=== PATIENT | female | born 1980 | race Caucasian/White ===

== ENCOUNTER 2019-04-24 20:30 | Emergency (ER) | payer OTHER ==
[~2019-04-24] VITALS: Ht 160 cm; Wt 78.5 kg
[~2019-04-24 20:30] MED LIST: AMOXICILLIN500 MG PO; ATIVAN1 MG PO; CELEXA20 MG PO; CIPRO500 MG PO; CIPROFLOXACIN500 MG PO; CITALOPRAM HBR20 MG PO; CLEOCIN HCL300 MG PO; CRANBERRY200 MG PO; DRISDOL50000 UNIT PO; EFFEXOR XR37.5 MG PO; FISH OIL 1,0001 EAC2 NG; GEODON60 MG PO; LEXAPRO20 MG PO; MACROBID 100 M100 MG PO; METOPROLOL SUCC25 MG PO; OMEPRAZOLE20 MG PO; POTASSIUM CHLO10 ME1 PO; PRILOSEC20 MG PO; SEROQUEL XR150 MG PO; VENLAFAXINE HCL75 M1 PO; VENTOLIN HFA18 GM INH; VITAMIN D5000 UNIT PO; ZOFRAN ODT4 MG PO; ZOFRAN4 MG PO
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
[2019-04-24] MEDS ORDERED: VISTARIL50 MG PO (20:50)
[2019-04-24] MEDS ORDERED: CETIRIZINE HCL10 MG PO (20:52)
[2019-04-24] MEDS ORDERED: PREDNISONE20 MG PO (22:17)
--- NOTE | 2019-04-25 15:40 | EKG ---
[facility] [address] [facility] [place], [place] [address] Signed Normal sinus rhythm Voltage criteria for left ventricular hypertrophy Nonspecific T wave abnormality Prolonged QT Abnormal ECG No previous ECGs available Confirmed by MONO JIN DO ([id number]) on 04/25/2019 3:39:50 PM Electronically Signed By: MONO JIN DO 04/25/19 1540 PATIENT NAME: LAURYN OWENS Electrocardiogram DATE OF : 82 PHYSICIAN: MONO JIN DO REPORT #: [id number] REPORT IS CONFIDENTIAL AND NOT TO BE RELEASED WITHOUT AUTHORIZATION
== END 2019-04-24 22:38 | disposition home or self-care (01) ==
LOC: ED 20:30
DX: J45.901 Unspecified asthma with (acute) exacerbation (principal); Z87.891 Personal history of nicotine dependence; Z90.49 Acquired absence of other specified parts of digestive tract; Z90.710 Acquired absence of both cervix and uterus; Z88.1 Allergy status to other antibiotic agents; Z88.2 Allergy status to sulfonamides; Z88.5 Allergy status to narcotic agent; Z88.8 Allergy status to other drugs, medicaments and biological substances; Z79.899 Other long term (current) drug therapy
CPT/HCPCS: 71045; 93005; 93010; 99285-25; J7512

== ENCOUNTER 2020-04-26 06:30 | Day surgery (SDC) | payer OTHER ==
[~2020-04-26] VITALS: Ht 160 cm; Wt 86.2 kg
[~2020-04-26 06:30] MED LIST changes: +CETIRIZINE HCL10 MG PO; +PREDNISONE20 MG PO; +VISTARIL50 MG PO
--- NOTE | 2020-04-26 06:57 | NUR ---
PATIENT HAVING ANXIETY ABOUT IV. HAD TO GET A AC BECAUSE PATIENNT LOOKED LIKE SHE MIGHT FAINT.
--- NOTE | 2020-04-26 08:08 | NUR ---
FROM THE MOMENT I ENTERED PT'S RM, I COULD TELL SHE HAD SOME ANXIETY ABOUT TODAY. A SLIGHT HESITATION IN HER VOICE WHEN SHE WOULD RESPOND, AND LOOKING OVER AT HER FRIEND BEFORE GIVING AN ANSWER. OUTLINED TODAY, PT REQUESTED PRAYER. WILL FOLLOW NEEDED
--- NOTE | 2020-04-26 08:14 | NUR ---
04/26/20 0814 Monse Snowden 0808 PT ARRIVED TO PACU ON 4L VIA NC, VSS. RESP EVEN AND UNLABORED. 0813 PT WOKE TO TACTILE STIMULI AND PT REACHING FOR HER FACE, O2 REMOVED. PT FALLS BACK TO SLEEP.
--- NOTE | 2020-04-27 07:31 | OR ---
[facility] [address] [place], [place] [address] Signed DATE OF OPERATION: 04/26/2020 SURGEON: Constantine Bill MD PREOPERATIVE DIAGNOSES: 1. Guaiac-positive stool. 2. Melena. 3. Change in bowel habits with constipation, change in diarrhea. 4. History of irritable bowel syndrome. 5. Right lower quadrant abdominal pain. 6. Gastroesophageal reflux disease. 7. Hiatal hernia. 8. Maternal great grandmother with colon cancer, age 85. 9. Maternal grandmother with colon polyps, age 86. POSTOPERATIVE DIAGNOSES: 1. Unremarkable upper endoscopy. 2. Unremarkable colonoscopy. PROCEDURES: 1. EGD with CLOtest and biopsies of the duodenum, pyloric bulb, antrum, and distal esophagus. 2. Colonoscopy with random cold biopsies. ESTIMATED BLOOD LOSS: None. INDICATIONS: Lauryn is a 40-year-old female, who has multiple significant past medical history as listed in history and physical. She also has significant multiple upper and lower GI complaints over multiple years. She has been to multiple previous evaluations. Most recently, she had upper and lower endoscopy and stool studies done with Dr. Dino Chaudhry in [place], [place]. Her stool studies were all negative. CT scan of abdomen and pelvis in 2018 was also negative. Upper and lower endoscopy in 2018 including biopsies and the H pylori were all negative. She apparently had a previous negative biopsy in October 2017 and a previous negative upper endoscopy in [address] Chaudhry has since retired. She was asked to see me for concerns of ongoing upper and lower GI complaints. She was asked to consider repeat upper and lower endoscopy. I had met with Lauryn and her mother in the office. Lauryn is disabled and her mother is legally blind. Her mother, however, is her caregiver. After a long discussion with Electronically Signed By: CONSTANTINE BILL MD 04/27/20 0731 PATIENT NAME: LAURYN OWENS OPERATIVE REPORT DATE OF : 82 REPORT #: [id number] PHYSICIAN: CONSTANTINE BILL MD PCP: STEFFANIE CHAMBERS REPORT IS CONFIDENTIAL AND NOT TO BE RELEASED WITHOUT AUTHORIZATION [facility] [address] [place], [place] [address] Signed Lauryn, we made efforts to track down all her previous records. We went ahead and scheduled her for both upper and lower endoscopy. She understands upper and lower endoscopy quite well. I did give her pamphlets in that regard. She knows there is risk including, but not limited to gas bloating, crampy abdominal pain, bleeding, perforation requiring surgery, and missed diagnosis. Also because of her multiple advanced medical issues, we asked an anesthesia provider to help us with increased monitoring sedation with propofol. Lauryn and her mother understand that repeat upper and lower endoscopy will likely have a low yield. In the meantime, we did receive the records from Dr. Dino Chaudhry's office. Again, he has since retired. His evaluation was negative. We yet to find any evidence of an upper GI small-bowel follow-through or capsule endoscopy. In the end, it appears she most likely has irritable bowel syndrome. Lauryn and her mom had expressed understanding, wished to proceed. PROCEDURE NOTE: Lauryn was taken into our endoscopy suite and placed in the supine semi-recumbent position. The posterior oropharynx was anesthetized with lidocaine spray. A bite block was utilized for the case. Lauryn was placed under propofol sedation per nurse beading machine operator. The adult gastroscope was introduced and advanced out into the third portion of the duodenum without difficulty. She had healthy clear green bile in the duodenum. The duodenum and pyloric channel were unremarkable. We took a biopsy of the duodenum, pyloric channel because of the history of diarrhea. There was no ulceration in the pyloric bulb or the stomach. Stomach also completed unremarkable. We went ahead and took a biopsy of the antrum for pathologic review as well as CLOtest. Upon retroflexion of scope, we see no evidence of a hiatal hernia. The scope was withdrawn up through the area of the GE junction, which was compliant without stricture. There was no evidence of any gastric or esophageal varices. The Z-line remains intact. There was no evidence for any Robert's mucosa and no distal esophagitis. We went ahead and took a biopsy just above the Z-line for pathologic review. The middle and upper esophagus were unremarkable. After this, the gas was suctioned out, the gastroscope removed. Lauryn tolerated the upper endoscopy quite well. Lauryn was then rotated into the left lateral decubitus position. She was maintained on IV sedation with propofol per our nurse beading machine operator. A digital rectal exam was performed and this was unremarkable. The adult colonoscope was then introduced and advanced under direct visualization of camera up to the cecum without difficulty. Her prep was quite excellent. We could easily see the appendiceal orifice and the ileocecal valve. Again, she has healthy green bile in the cecum. The scope was slowly withdrawn. We took several but random biopsies throughout the colon for pathologic review due to the history of diarrhea. No evidence of any pathology throughout the entire colon or rectum. Upon retroflexion of scope, there was no pathology above the anal canal. After this, the gas was suctioned out. The colonoscope removed. Lauryn tolerated her lower endoscopy quite well. Electronically Signed By: CONSTANTINE BILL MD 04/27/20 0731 PATIENT NAME: LAURYN OWENS OPERATIVE REPORT DATE OF : 82 REPORT #: [id number] PHYSICIAN: CONSTANTINE BILL MD PCP: STEFFANIE CHAMBERS REPORT IS CONFIDENTIAL AND NOT TO BE RELEASED WITHOUT AUTHORIZATION [facility] [address] [place], [place] [address] Signed RECOMMENDATIONS: I will see Lauryn back in my office in 7 to 14 days to review her results. She may or may not benefit from an upper GI small-bowel follow-through and/or a capsule endoscopy. In the end, it may all be irritable bowel syndrome. That would be handled from a medical standpoint. Constantine Bill MD [facility] /[id number] cc: MD Constantine Bravo MD Tiffany Nickerson, PA Christopher Ravage, MD Copies: CONSTANTINE BILL MD, CHRISTOPHER MD ~ Electronically Signed By: CONSTANTINE BILL MD 04/27/20 0731 PATIENT NAME: LAURYN OWENS OPERATIVE REPORT DATE OF : 82 REPORT #: [id number] PHYSICIAN: CONSTANTINE BILL MD PCP: STEFFANIE CHAMBERS REPORT IS CONFIDENTIAL AND NOT TO BE RELEASED WITHOUT AUTHORIZATION
--- NOTE | 2020-04-28 11:34 | PATH ---
[facility] [address] [place], [place] [address] Signed SPECIMEN(S): A DUODENUM SPECIMEN(S): B DUODENUM BULB SPECIMEN(S): C ANTRUM/PYLORUS SPECIMEN(S): D LOWER ESOPHAGUS SPECIMEN(S): E MIDDLE ESOPHAGUS SPECIMEN(S): F COLON SPECIMEN SOURCE: A. DUODENUM B. DUODENUM BULB C. ANTRUM/PYLORUS D. LOWER ESOPHAGUS E. MIDDLE ESOPHAGUS F. COLON CLINICAL HISTORY: Black stool, history of diarrhea. MICROSCOPIC DESCRIPTION: Histologic sections of all submitted blocks are examined by light microscopy. These findings, together with the gross examination, support the pathologic diagnosis. FINAL PATHOLOGIC DIAGNOSIS: A. Duodenum, biopsy: - Duodenal mucosa with no histopathologic abnormality. - Negative for increased intraepithelial lymphocytes. - Negative for dysplasia or malignancy. B. Duodenum, bulb, biopsy: - Duodenal mucosa with changes consistent with peptic duodenitis. - Negative for Helicobacter organisms on HE stain. - Negative for dysplasia or malignancy. C. Stomach, antrum/pylorus, biopsy: - Antral mucosa with mild chronic, inactive gastritis. - Negative for Helicobacter organisms on HE stain. - Negative for dysplasia or malignancy. D. Esophagus, lower, biopsy: - Squamous mucosa with chronic inflammation and reactive epithelial changes, consistent with reflux esophagitis. - Negative for intestinal metaplasia, dysplasia, or malignancy. E. Esophagus, middle, biopsy: - Squamous mucosa with no histopathologic abnormality. PATIENT NAME: LAURYN OWENS [facility] DATE OF : 82 REPORT #: [id number] PHYSICIAN: MURIEL PATHOLOGY PCP: STEFFANIE CHAMBERS REPORT IS CONFIDENTIAL AND NOT TO BE RELEASED WITHOUT AUTHORIZATION [facility] [address] [place], [place] [address] Signed - Negative for intestinal metaplasia, dysplasia, or malignancy. F. Colon, biopsy: - Colonic mucosa with mild mucosal capillary congestion and hemorrhage, see comment. - Negative for active, chronic, or microscopic colitis. - Negative for dysplasia or malignancy. COMMENT: Regarding specimen F: Sections demonstrate fragments of benign colonic mucosa with mild mucosal capillary congestion and hemorrhage within the lamina propria. No signs of ischemia including ulcerations, crypt injury, crypt dropout, or stromal hyalinization are seen. The findings are favored to be secondary to procedure artifact. Correlation with colonoscopic findings is recommended. NAL:cml:C2NR GROSS DESCRIPTION: Six specimens are received in six containers, labeled "Lauryn Owens." A. The specimen, labeled "Lauyrn Owens, #1," and designated on the requisition "duodenum biopsy," is received in formalin and consists of one dee soft tissue fragment that measures 0.4 cm in greatest dimension. The specimen is entirely submitted in cassette (A1). B. The specimen, labeled "Lauryn Owens, #2," and designated on the requisition "duodenum bulb," is received in formalin and consists of one dee soft tissue fragment that measures 0.4 cm in greatest dimension. The specimen is entirely submitted in cassette (B1). C. The specimen, labeled "Lauryn Owens, #3," and designated on the requisition "antrum/pylorus," is received in formalin and consists of one dee soft tissue fragment that measures 0.4 cm in greatest dimension. The specimen is entirely submitted in cassette (C1). D. The specimen, labeled "Lauryn Owens, #4," and designated on the requisition "lower esophagus," is received in formalin and consists of one white-dee soft tissue fragment that measures 0.5 cm in greatest dimension. The specimen is entirely submitted in cassette (D1). E. The specimen, labeled "Lauryn Owens, #5," and designated on the requisition "middle esophagus," is received in formalin and consists of one white-dee soft tissue fragment that measures 0.4 cm in greatest dimension. The specimen is entirely submitted in cassette (E1). F. The specimen, labeled "Lauryn Owens, #6," and designated on the requisition "colon," is received in formalin and consists of three dee soft PATIENT NAME: LAURYN OWENS PATHOLOGY DATE OF : 82 REPORT #: [id number] PHYSICIAN: MURIEL FARLEY PCP: STEFFANIE CHAMBERS REPORT IS CONFIDENTIAL AND NOT TO BE RELEASED WITHOUT AUTHORIZATION [address] [address] Signed tissue fragments that measure 0.3-0.4 cm in greatest dimension. The specimen is entirely submitted in cassette (F1). FB (under the direct supervision of a pathologist) The Gross Description was prepared using a voice recognition system. The report was reviewed for accuracy; however, sound-alike word errors, addition and/or deletions may occur. If there is any question about this report, please contact Client Services. PERFORMING LABORATORY: The technical component was performed by [facility], [address] [place] [id number] (Statistician Mathematical: Yue Kenny MD; CLIA# [id number]). [facility] [place] [address] (CLIA# [id number]). Diagnostician: Tita Shoemaker MD Pathologist Electronically Signed 04/28/2020 Copies: ~ PATIENT NAME: LAURYN OWENS PATHOLOGY DATE OF : 82 REPORT #: [id number] PHYSICIAN: MURIEL FARLEY PCP: STEFFANIE CHAMBERS REPORT IS CONFIDENTIAL AND NOT TO BE RELEASED WITHOUT AUTHORIZATION
== END 2020-04-26 09:00 | disposition home or self-care (01) ==
LOC: OPS 06:30 → DS 06:30 → OPS 06:45 → DS 06:45 → OPS 09:00
PROVIDERS: Colon & Rectal Surgery
PROC: 0DB28ZX Excision of Middle Esophagus, Via Natural or Artificial Opening Endoscopic, Diagnostic (ICD-10-PCS; 2020-04-26)
PROC: 0DB38ZX Excision of Lower Esophagus, Via Natural or Artificial Opening Endoscopic, Diagnostic (ICD-10-PCS; 2020-04-26)
PROC: 0DBE8ZX Excision of Large Intestine, Via Natural or Artificial Opening Endoscopic, Diagnostic (ICD-10-PCS; 2020-04-26)
PROC: 0DB98ZX Excision of Duodenum, Via Natural or Artificial Opening Endoscopic, Diagnostic (ICD-10-PCS; principal; 2020-04-26 06:45)
PROC: 0DB78ZX Excision of Stomach, Pylorus, Via Natural or Artificial Opening Endoscopic, Diagnostic (ICD-10-PCS; 2020-04-26 06:45)
DX: K92.1 Melena (principal); K59.00 Constipation, unspecified; K52.9 Noninfective gastroenteritis and colitis, unspecified; K29.50 Unspecified chronic gastritis without bleeding; K20.9 Esophagitis, unspecified; K21.9 Gastro-esophageal reflux disease without esophagitis; Z79.899 Other long term (current) drug therapy
CPT/HCPCS: 86677; 88305; J2704; J7121